=== PATIENT | male | born 1945 | race African-American/Black ===

== ENCOUNTER 2017-03-16 08:13 | Day surgery (SDC) | payer OTHER ==
[~2017-03-16] VITALS: Ht 170.2 cm; Wt 72.7 kg
[2017-03-16 09:06] VITALS: Ht 170.2 cm; Wt 72.7 kg
[2017-03-16] MEDS ORDERED: CAR120SR PO (09:10)
[2017-03-16] MEDS ORDERED: ALBU2.5V3 NEB (09:10)
[2017-03-16] MEDS ORDERED: ATOR80TA75 PO (09:10)
[2017-03-16] MEDS ORDERED: LISI20TA11 PO (09:10)
[2017-03-16] MEDS ORDERED: RIVA15TA PO (09:10)
[2017-03-16 09:12] VITALS: BP 138/61; PULSE 64; RESP 18
[2017-03-16] MEDS ORDERED: PROPOFOL 20 ML ONE (09:24)
[2017-03-16] MEDS ORDERED: MIDAZOLAM 1 MG/ML 2 ML INJ ONE (09:25)
[2017-03-16] MEDS ORDERED: FENTAnyl 50 MCG/ML VIAL ONE (09:25)
[2017-03-16] MEDS ORDERED: EPHEDrine SULFATE 50 MG/5 ML SYG ONE (09:47)
--- NOTE | 2017-03-16 10:07 | OPPN ---
Date/Time of Note Date/Time of Note DATE: 03/16/17 TIME: 10:06 Operative Report Preoperative Diagnosis Positive occult blood in stool Postoperative Diagnosis Internal hemorrhoids Operation/Procedure Performed Colonoscopy Surgeon see signature line fundraising assistant None Anesthesia: MAC Estimated blood loss: none Transfusion Required none Specimen None Grafts/Implants none Complications none LEELA LINDSEY MD Mar 16, 2017 10:07
[2017-03-16 10:23] VITALS: BP 125/58; PULSE 66; RESP 18
--- NOTE | 2017-03-17 04:14 | GILP ---
DATE OF PROCEDURE: 03/16/2017 NAME OF PROCEDURE: Colonoscopy. SURGEON: Maryam Molina MD PREOPERATIVE DIAGNOSIS: Positive occult blood in stool. POSTOPERATIVE DIAGNOSES 1. Colonoscopy all the way to the cecum. 2. Internal hemorrhoids. 3. No colon neoplasm was identified. INDICATION FOR THE PROCEDURE: Mr. Froilan Vallejo is a 71-year-old male patient who was noted to hav e positive occult blood in stool. Patient was scheduled for colonoscopy for further evaluation. The procedure and possible complications are well explained to the patient; he understood and consen sofia to the procedure. DESCRIPTION OF PROCEDURE: Under the influence of anesthesia, the colonoscope was carefully introduc ed in the rectum and under direct vision, it was advanced all the way to the cecum. FINDINGS: The patient had internal hemorrhoids. No colon neoplasm was identified. He tolerated the procedure very well and there was no complication from the procedure. At the end o f the procedure, he was awake with stable vital signs and he was discharged home to the care of his family. IMPRESSION: Please see postoperative diagnoses. PLAN: Because of the patient's age, the patient will not need another screening colonoscopy. Dictated By: MARYAM JAMISON/DEANNA Conf#: [id number] DID#: [id number]
== END 2017-03-16 10:51 | disposition home or self-care (01) ==
LOC: GIL 08:13
PROVIDERS: ATTEND Internal Medicine Gastroenterology
DX: Z12.11 Encounter for screening for malignant neoplasm of colon (principal); K64.8 Other hemorrhoids; I10 Essential (primary) hypertension; I25.10 Atherosclerotic heart disease of native coronary artery without angina pectoris; E78.5 Hyperlipidemia, unspecified
CPT/HCPCS: 45378; J2250; J3010; Z7610